=== PATIENT | male | born 1980 | race Caucasian/White ===

== ENCOUNTER → 2016-12-10 | Outpatient (CLI) | payer SELFPAY ==
[~2016-12-10] MED LIST: None per pt
== END ==
LOC: STAR 16:18
PROVIDERS: ATTEND Urology
DX: Z02.9 Encounter for administrative examinations, unspecified (principal)

== ENCOUNTER 2016-12-28 10:54 | Emergency (ER) | payer SELFPAY ==
[~2016-12-28] VITALS: Ht 172.7 cm; Wt 83.0 kg
[2016-12-28 10:57] VITALS: BP 106/65
== END 2016-12-28 17:04 | disposition home or self-care (01) ==
LOC: ED 15:32
DX: N43.3 Hydrocele, unspecified (principal)
CPT/HCPCS: 76870; 99284

== ENCOUNTER 2017-02-08 13:35 | Day surgery (SDC) | payer OTHER ==
[~2017-02-08] VITALS: Ht 170.2 cm; Wt 82.2 kg
[2017-02-08] MEDS ORDERED: LACTATED RINGERS 1,000 ML IV SCH (14:13)
[2017-02-08 14:15] VITALS: BP 106/70
[2017-02-08] MEDS ORDERED: MIDAZOLAM 1 MG/ML, 2ML ONE (15:01)
[2017-02-08] MEDS ORDERED: FENTANYL PF 100 MCG/2ML ONE (15:02)
[2017-02-08] MEDS ORDERED: BUPIVACAINE/PF 0.25% ONE (15:45)
[2017-02-08] MEDS ORDERED: NEOSPORIN OINT, 15GM ONE (15:45)
[2017-02-08] MEDS ORDERED: PROPOFOL 10 MG/ML, 20ML ONE (15:53)
[2017-02-08] MEDS ORDERED: KETAMINE 10 MG/ML, 20ML ONE (15:53)
[2017-02-08] MEDS ORDERED: ONDANSETRON 2MG/ML, 2ML ONE (15:53)
[2017-02-08] MEDS ORDERED: KETOROLAC 30 MG/1 ML ONE (15:53)
[2017-02-08] MEDS ORDERED: DEXAMETHASONE 4 MG/ML, 1ML ONE (15:53)
[2017-02-08] MEDS ORDERED: CEFAZOLIN 1,000 MG ONE (15:53)
[2017-02-08] MEDS ORDERED: METOCLOPRAMIDE 5 MG/ML, 2ML ONE (15:53)
[2017-02-08] MEDS ORDERED: BUPIVACAINE/PF 0.25% INFIL ONE (16:07)
[2017-02-08] MEDS ORDERED: ACETAMINOPHEN 325 MG TABLET PO PRN (16:30)
[2017-02-08] MEDS ORDERED: MEPERIDINE/PF 25MG/0.5ML IVPush PRN (16:30)
[2017-02-08] MEDS ORDERED: LABETALOL 5MG/ML, 20ML IV PRN (16:30)
[2017-02-08] MEDS ORDERED: OXYcodone 5 MG/5 ML ORAL.SOL UDC PO PRN (16:30)
[2017-02-08] MEDS ORDERED: ONDANSETRON 2MG/ML, 2ML IVPush PRN (16:30)
[2017-02-08] MEDS ORDERED: hydrALAzine 20 MG/ML, 1ML IV PRN (16:30)
[2017-02-08] MEDS ORDERED: FENTANYL PF 100 MCG/2ML IV PRN (16:30)
[2017-02-08] MEDS ORDERED: HYDROmorphone 1 MG/ML, 1ML IV PRN (16:30)
[2017-02-08] MEDS ORDERED: PROMETHAZINE 25 MG/ML, 1ML IV PRN (16:30)
[2017-02-08] MEDS ORDERED: NEOSPORIN OINT, 15GM TP ONE (16:34)
[2017-02-08] MEDS ORDERED: ONDANSETRON 2MG/ML, 2ML IV PRN (17:00)
[2017-02-08] MEDS ORDERED: OXYcodone/APAP 5/325MG TABLET PO PRN (17:00)
== END 2017-02-08 19:10 ==
LOC: OUT 13:35
PROVIDERS: ATTEND Urology
DX: N43.0 Encysted hydrocele (principal)
CPT/HCPCS: 55040; 81003; 87086; J2250; J3010; J3490; J7120; J0690; J1100; J1885; J2405; J2704; J2765